=== PATIENT | male | born 1950 | race Caucasian/White ===

== ENCOUNTER 2017-06-27 22:49 | Emergency (ER) | payer MEDICARE ==
[2017-06-28 00:09] LABS: #Eosinphils 0.4 thou/uL (0.0-0.7); #Lymphocytes 1.6 thou/uL (1.20-3.40); #Monocytes 0.5 thou/uL (0.11-0.59); #Neutrophils 3.6 thou/uL (1.40-6.50); %Basophils 0.2 % (0.0-1.0); %Lymphocytes 26.5 % (21.0-51.0); %Monocytes 7.5 % (0.0-10.0); Hematocrit 42.7 % (42.0-52.0); Mean Platelet Volume 7.6 fL (7.4-10.4); Red Blood Cell (RBC) Count 4.85 mill/uL (4.70-6.10); White Blood Cell (WBC) Count 6.2 thou/uL (4.8-10.8)
[2017-06-28 00:29] LABS: ALT (SGPT) 28 U/L (8-55); AST (SGOT) 25 U/L (5-34); Alkaline Phosphatase 87 U/L (40-150); Anion Gap 12 mmol/L (10-20); BUN (Urea Nitrogen) 17 mg/dL (8.4-25.7); Bilirubin, Total 1.1 mg/dL (0.2-1.2); CK (CPK) 210 U/L (30-200); Calc. Creatinine Clearance 0 mL/min (70-130); Calcium 9.6 mg/dL (7.8-10.44); Carbon Dioxide 31 mmol/L (23-31); Chloride 101 mmol/L (98-107); Estimated GFR-MDRD 59; Globulin 3.6 g/dL (2.4-3.5); Lipase 22 U/L (8-78); Protein, Total 7.6 g/dL (5.8-8.1)
[2017-06-28 00:33] LABS: Troponin I Less than 0.010 ng/mL (< 0.028)
--- NOTE | 2017-06-28 08:12 | RAD ---
PORTABLE CHEST: HISTORY: Chest pain. COMPARISON: 02/01/17 study. FINDINGS: Heart size is enlarged. Mediastinal structures are unremarkable. Lungs are clear of infiltrates. IMPRESSION: Mild cardiomegaly. POS: [facility]
== END 2017-06-28 01:10 | disposition left against medical advice (07) ==
LOC: ERS 22:49
DX: Z53.21 Procedure and treatment not carried out due to patient leaving prior to being seen by health care provider (principal)
CPT/HCPCS: 36415; 71010; 80053; 82553; 83690; 84484; 85025; 93005

== ENCOUNTER 2018-01-26 19:06 | Inpatient (IN) | payer MEDICARE ==
[~2018-01-26 19:06] MED LIST: ISOVUE-370 76%-LOCM 1 ML ONE
[2018-01-26] MEDS ORDERED: Metoclopramide HCl 10 MG/2 ML VIAL ONE (19:39)
[2018-01-26 20:13] LABS: Hemoglobin 13.9 g/dL (14.0-18.0); Mean Corpuscular HGB CONC 32.9 g/dL (32.0-36.0); Mean Corpuscular Hemoglobin 28.4 pg (27.0-31.0); Mean Corpuscular Volume 86.4 fl (80.0-94.0); Mean Platelet Volume 7.8 fL (7.4-10.4); Platelet Count 181 thou/uL (130-400); RBC Distribution Width 14.5 % (11.5-14.5); Red Blood Cell (RBC) Count 4.88 mill/uL (4.70-6.10); White Blood Cell (WBC) Count 10.4 thou/uL (4.8-10.8)
[2018-01-26 20:31] LABS: Band 29 % (5-11); Eosinophils 1 % (0-10); Lymphocytes 3 % (21-51); MDiff Complete? YES; Metamyelocyte 3 % (0-0); Monocytes 3 % (0-10); Neutrophil 60 % (42-75); Ovalocytes SLIGHT = 2-5 cells (100X) (0-1/hpf); PLT Morphology Comment Appears Adequate; Polychromasia SLIGHT = 2-3 cells (100X) (0-2/hpf); Reactive Lymphocytes 1 % (0-10); Vacuoles SLIGHT
[2018-01-26 20:38] LABS: ALT (SGPT) 21 U/L (8-55); AST (SGOT) 20 U/L (5-34); Albumin 4.4 g/dL (3.4-4.8); Alkaline Phosphatase 63 U/L (40-150); Anion Gap 17 mmol/L (10-20); BUN (Urea Nitrogen) 25 mg/dL (8.4-25.7); Bilirubin, Total 2.2 mg/dL (0.2-1.2); CK (CPK) 172 U/L (30-200); Calc. Creatinine Clearance 0 mL/min (70-130); Calcium 9.7 mg/dL (7.8-10.44); Carbon Dioxide 23 mmol/L (23-31); Chloride 102 mmol/L (98-107); Estimated GFR-MDRD 41; Globulin 3.4 g/dL (2.4-3.5); Glucose 123 mg/dL (80-115); Lipase 23 U/L (8-78); Potassium 3.7 mmol/L (3.5-5.1); Protein, Total 7.8 g/dL (5.8-8.1); Sodium 138 mmol/L (136-145)
[2018-01-26 20:43] LABS: CKMB 0.4 ng/mL (0-6.6); Troponin I Less than 0.010 ng/mL (< 0.028)
--- NOTE | 2018-01-26 20:51 | RAD ---
PORTABLE UPRIGHT FRONTAL CHEST RADIOGRAPH: 01/26/2018 HISTORY: Vomiting. COMPARISON: None. FINDINGS: There is no pneumothorax, pleural fluid, focal consolidation, or alveolar edema. IMPRESSION: No acute findings. POS: [facility]
--- NOTE | 2018-01-26 20:58 | ULT ---
RIGHT UPPER QUADRANT ULTRASOUND: 01/26/2018 HISTORY: Abdominal pain with distention. Nausea, vomiting, and fever. COMPARISON: None. TECHNIQUE: Multiplanar mai-scale sonographic imaging of the right upper quadrant obtained. FINDINGS: The pancreas is not well seen secondary to bowel gas. The hepatic parenchyma is heterogeneous and ec hogenic, suggesting hepatocellular disease, such as steatosis. The stringer up soldering machine reports a negative Mu rphy sign. The common bile duct measures 5-6 mm, within normal limits. The right kidney measures 10 .3 cm in craniocaudal dimension, and demonstrates no stone, hydronephrosis, or mass. There appears to be a single small stone within the gallbladder neck. There is small volume sludge w ithin the gallbladder lumen. IMPRESSION: Probable single gallstone with small volume gallbladder sludge. No evidence for acute cholecystitis or biliary dilatation. POS: [facility]
--- NOTE | 2018-01-26 22:18 | CT ---
CT ABDOMEN AND PELVIS: 01/26/2018 HISTORY: Vomiting. Pain. Diarrhea. COMPARISON: None. TECHNIQUE: Serial axial CT imaging obtained at 5 mm intervals, from the lung bases through the pubic symphysis, with IV contrast. Coronal reformatted imaging obtained. FINDINGS: The lack of oral contrast limits assessment of the bowel. The imaged lung bases demonstrate no acute findings. No free intraperitoneal air or fluid is seen. The liver, gallbladder, spleen, pancreas, and adrenal glands are unremarkable. There is a small hypodensity in the upper pole of the left kidney, likely on the basis of a small cys t, measuring approximately 1.1 cm in transverse dimension. There is a punctate, nonobstructing stone in the lower pole of the right kidney. Small fat-containing inguinal hernia noted on the right. There is mild, diffuse wall thickening of the colon, especially in the region of the descending colon and the sigmoid colon. The cecum is mildly prominent, as is the ascending colon. The cecum and asc ending colon appear fluid filled. The appendix is unremarkable. There is fluid within a few scatter ed, nondilated loops of small bowel within the abdomen/pelvis. There is no evidence for large or small bowel obstruction. Multiple subcentimeter nodes are seen wit hin the retroperitoneum, with no enlarged abdominal or pelvic lymph nodes noted. Small metallic foci are noted within the mesenteric fat in the central abdomen, to the left of midlin e. Review of the osseous structures demonstrates multilevel lower lumbar spine facet hypertrophy. No wo rrisome lytic or blastic bone lesion. IMPRESSION: Fluid within the colon and scattered, nondilated loops of small bowel. Wall thickening of the descen ding colon and the sigmoid colon. Findings suggest enteritis/colitis. No evidence for bowel obstruc tion, free intraperitoneal air, or abscess. POS: [facility]
[2018-01-26] MEDS ORDERED: metroNIDAZOLE 500 MG/100 ML BAG ONE (23:10)
[2018-01-26 23:50] LABS: Bilirubin Negative (Negative); Blood, Urine Negative (Negative); Clarity CLEAR (Clear); Glucose, Urine (Dipstick) Negative (Negative); Leukocyte Negative (Negative); Nitrite Negative (Negative); Protein, Urine (Dipstick) 30 mg/dL (Neg-Trace); Specific Gravity, Urine 1.038 (1.002-1.036); Urobilinogen 0.2 mg/dL (0.2-1.0)
[2018-01-26 23:51] LABS: Bacteria/HPF None Seen HPF (None Seen); Hyaline Casts/LPF 4-6 HYALINE CAST LPF (0-3 Hyaline); Pathc Cast-AUWi Flag 0.72 (0-2.49); RBC/HPF 0-3 HPF (0-3); Squamous Epithelial 0-3 HPF (0-3); WBC/HPF 0-3 HPF (0-3)
--- NOTE | 2018-01-27 | PDOC.FPRHP ---
- History of Present Illness Chief Complaint: nausea, vomiting, diarrhea, abdominal pain History of Present Illness: PCP: Kit 67 yo M w/ PMH of htn, hld presents for evaluation of 1 day h/o nausea and vomiting x 5 and diarrhea/watery stools x3 which started earlier today. He also reports associated fever and chills. Denies hematemesis, melena, hematochezia, and BRBPR. Dneis sob, cp. Denies exacerbating and remitting factors. Only other complaint is dry mouth. Last PO intake Saturday evening. Denies change in diet, h/o possible contaminated food/water and sick contacts. ED Course: levaquin, flagyl, IVF NS 2L, phenergan - Allergies/Adverse Reactions Allergies Allergy/AdvReac Type Severity Reaction Status Date / Time meperidine HCl [From Demerol] Allergy Verified 01/27/18 02:17 - Home Medications Medication Instructions Recorded Confirmed Type Aspirin [Aspir 81] 81 mg PO DAILY 03/12/13 01/27/18 History PARoxetine HCl [Paxil] 40 mg PO DAILY 03/12/13 01/27/18 History Carvedilol [Carvedilol] 25 mg PO BID 01/27/18 01/27/18 History Esomeprazole Magnesium [Nexium 20 mg PO DAILY 01/27/18 01/27/18 History 24Hr] Hydrochlorothiazide 25 mg PO BID 01/27/18 01/27/18 History Losartan Potassium [Cozaar] 100 mg PO DAILY 01/27/18 01/27/18 History Rosuvastatin Calcium [Crestor] 40 mg PO HS 01/27/18 01/27/18 History Spironolactone 25 mg PO BID 01/27/18 01/27/18 History Terazosin HCl 2 mg PO HS 01/27/18 01/27/18 History hydrALAZINE [Apresoline] 25 mg PO PRN PRN MDD HYPERTENSION 01/27/18 01/27/18 History - History PMHx:htn, hld PSHx: None FHx: NA Social: Denies alcohol, tobacco and drug use - Review of Systems General: reports: fever/chills Eyes: denies: vision changes ENT: denies: nasal congestion, rhinorrhea Respiratory: denies: cough, congestion, shortness of breath Cardiovascular: denies: chest pain, palpitation, edema Gastrointestinal: reports: nausea, vomiting, diarrhea, abdominal pain. denies: constipation, GI bleeding Genitourinary: denies: incontinence, dysuria Skin: denies: rashes, lesions Musculoskeletal: denies: pain, arthritis/arthralgias Neurological: denies: numbness, syncope - Vital signs BP: 109/68 HR: 136 RR: 20-28 Tmax: 101.5 Pox: 95% on RA Wt: 103Kg - Physical Exam Constitutional: other (Ill appearing, obese) HEENT: normocephalic and atraumatic, PERRLA, EOMI, conjunctiva clear, no scleral icterus, grossly normal vision, grossly normal hearing Neck: supple, FROM, trachea midline, no LAD, no JVD, no thyromegaly Chest: no-tender to palpation Heart: normal S1/S2, no murmurs/rubs/gallops, pulses present, no edema, other ( tachycardic) Lungs: CTAB, no respiratory distress, good air movement, no rales/rhonchi, no wheezing, no retractions Abdomen: soft, bowel sounds present, no masses/distention, other (mildly diffuse ttp, w/o rebound or guarding) Musculoskeletal: normal structure, normal tone Neurological: no focal deficit, normal sensation Skin: no rash/lesions, capillary refill <2 seconds, other (delayed cap refill) Heme/Lymphatic: no petechia, no LAD Psychiatric: normal mood and affect FMR H&P: Results - Labs Result Diagrams: 01/27/18 04:27 01/27/18 04:27 Lab results: WBC 10.4 thou/uL (4.8-10.8) 01/26/18 19:56 Hgb 13.9 g/dL (14.0-18.0) L 01/26/18 19:56 Hct 42.2 % (42.0-52.0) 01/26/18 19:56 MCV 86.4 fl (80.0-94.0) 01/26/18 19:56 Plt Count 181 thou/uL (130-400) 01/26/18 19:56 Band Neuts % (Manual) 29 % (5-11) H 01/26/18 19:56 Sodium 138 mmol/L (136-145) 01/26/18 19:56 Potassium 3.7 mmol/L (3.5-5.1) 18 19:56 Chloride 102 mmol/L (98-107) 01/26/18 19:56 Carbon Dioxide 23 mmol/L (23-31) 18 19:56 BUN 25 mg/dL (8.4-25.7) 01/26/18 19:56 Creatinine 1.70 mg/dL (0.6-1.3) H 01/26/18 19:56 Glucose 123 mg/dL (80-115) H 01/26/18 19:56 Lactic Acid 2.7 mmol/L (0.5-2.2) H 01/26/18 19:56 Calcium 9.7 mg/dL (7.8-10.44) 01/26/18 19:56 Total Bilirubin 2.2 mg/dL (0.2-1.2) H 01/26/18 19:56 AST 20 U/L (5-34) 01/26/18 19:56 ALT 21 U/L (8-55) 01/26/18 19:56 Alkaline Phosphatase 63 U/L (40-150) 18 19:56 Creatine Kinase 172 U/L (30-200) 01/26/18 19:56 CK-MB (CK-2) 0.4 ng/mL (0-6.6) 01/26/18 19:56 Serum Total Protein 7.8 g/dL (5.8-8.1) 01/26/18 19:56 Albumin 4.4 g/dL (3.4-4.8) 01/26/18 19:56 Lipase 23 U/L (8-78) 01/26/18 19:56 Urine Ketones Negative mg/dL (Negative) 01/26/18 23:41 Urine Blood Negative (Negative) 01/26/18 23:41 Urine Nitrite Negative (Negative) 01/26/18 23:41 Ur Leukocyte Esterase Negative (Negative) 01/26/18 23:41 Urine RBC 0-3 HPF (0-3) 01/26/18 23:41 Urine WBC 0-3 HPF (0-3) 01/26/18 23:41 Ur Squamous Epith Cells 0-3 HPF (0-3) 06/17/18 23:41 Urine Bacteria None Seen HPF (None Seen) 01/26/18 23:41 - EKG Interpretation EKG: NSR, tachycardia, occasional PAC - Radiology Interpretation Chest x-ray Status: report reviewed by me (NAD) US - abdomen Status: report reviewed by me (No cholecystitis, gall stone) CT scan - abdomen Status: report reviewed by me (colitis involving sigmoid colon) FMR H&P: A/P - Problem List (1) Septic colitis Current Visit: Yes Status: Acute Code(s): A09 - INFECTIOUS GASTROENTERITIS AND COLITIS, UNSPECIFIED (2) TAMRA (acute kidney injury) Current Visit: Yes Status: Acute Code(s): N17.9 - ACUTE KIDNEY FAILURE, UNSPECIFIED (3) Dehydration Current Visit: Yes Status: Acute Code(s): E86.0 - DEHYDRATION (4) HTN (hypertension) Current Visit: Yes Status: Chronic Code(s): I10 - ESSENTIAL (PRIMARY) HYPERTENSION (5) HLD (hyperlipidemia) Current Visit: Yes Status: Chronic Code(s): E78.5 - HYPERLIPIDEMIA, UNSPECIFIED (6) MARYLOU (obstructive sleep apnea) Current Visit: Yes Status: Chronic Code(s): G47.33 - OBSTRUCTIVE SLEEP APNEA (ADULT) (PEDIATRIC) - Plan 1) Sepsis 2/2 colitis vs gastroenteritis: -admit tele - aggressive IVF resuscitation with LR @ 200 - Given flagyl and levaquin in ED, cont flagyl and switch to IV cipro - clear liquid diet ADAT - Zofran prn for n/v 2) TAMRA: 2/2 decreased pO intake and dehydration, aggressive IVF resuscitation and repeat am BMP, trend 3) Dehydration: see #2 4) HTN: home meds 5) HLD: Home meds 6) Code status: full code, spoke with pt at bedside 7) MARYLOU: CPAP qhs Disposition/LOS: guarded, >/= 2 days FMR H&P: Upper Level - Pertinent history 67 yo M with hx of obesity, MARYLOU, htn, hld reports hx of feeling weak over last week. Vomiting started around 8:00 AM today and has had multiple episodes of diarrhea today. Tried to drink some fluids at home but unable to keep anything down. Pt has nausea and a cough. Pt denies anybody around him has been sick lately but does report to ED eating TV dinner last night that may have been undercooked and a steak at [employer] on Saturday. He does not endorse this with me. Most of hx taken from his cousin who is going home to get his home CPAP machine , med list provided to nurse. - Pertinent findings 105/61 129 28 99.7 (Tmax 101.5) 95% on RA Gen: slow to answer question, weak, fatigued, no resp distress, AOx4, obese HEENT: oropharynx clear without exudates or erythema Lungs: some rales appreciated Cardiac: RRR, no murmurs, gallops, clicks, rubs, difficult to auscultate to full extent due to habitus Abd: no swelling, fluid wave, or TTP LE: no swelling - Plan Date/Time: 01/27/18 0000 I, Caryn Renteria, have evaluated this patient and agree with findings/plan as outlined by technology risk intern resident. Pertinent changes/additions are listed here. 1. sepsis 2/2 possible gastroenteritis- will need aggressive hydration, bcx2, go ahead and start abx an not sure of source but possibly gut, CT shows colitis , enteritis, flagyl and levaquin started in ED, ok with continuing those. Collect UA, CXR unremarkable though some rales appreciated, would repeat 2 V tomorrow and obtain BNP if worsening exam. LA was 2.7 repeat in 4 hours from initial draw. Repeat CBC AM 2. MARYLOU-continue with home cpap, cousin running home to get it 3. htn-hold home meds for now with sepsis and hypotension 4. hld-continue home meds 5. depression-continue home meds Attending Addendum - Attending Addendum Date/Time: 01/27/18 1225 I personally evaluated the patient and discussed the management with Dr. Renteria , Dr. Pop, and Dr. Pantoja I agree with the History, Examination, Assessment and Plan documented above with any addition or exceptions noted below. 67 yo male with hx of HTN, HLD admitted for sepsis related to infectious colitis. Has now been transferred to IM due to hypotension from hypovolemia. Will continue judicious IVF hydration. Monitor electrolytes, renal function, lactic acid, and vital closely. Continue GI antibiotics flagyl and cipro. Stool studies and cultures pending. Monitor for acute abdomen. Liquid diet and as tolerated. Lai
[2018-01-27 00:10] LABS: Lactic Acid 2.4 mmol/L (0.5-2.2)
[2018-01-27 01:45] VITALS: BMI 36.4
[2018-01-27] MEDS ORDERED: Ondansetron ODT 4 MG TAB PO PRN (02:06)
[2018-01-27] MEDS: Lactated Ringer's 1,000 ML IV SCH ×4 (03:05→17:39)
[2018-01-27] MEDS ORDERED: Acetaminophen 325 MG TAB PO PRN (03:34)
[2018-01-27 05:11] LABS: #Lymphocytes 0.5 thou/uL (1.20-3.40); #Monocytes 0.5 thou/uL (0.11-0.59); #Neutrophils 7.5 thou/uL (1.40-6.50); %Eosinophils 0.2 % (0.0-10.0); %Monocytes 5.2 % (0.0-10.0); %Neutrophils 88.6 % (42.0-75.0); Hemoglobin 13.1 g/dL (14.0-18.0); Mean Corpuscular HGB CONC 32.9 g/dL (32.0-36.0); Mean Corpuscular Hemoglobin 28.9 pg (27.0-31.0); Mean Corpuscular Volume 87.8 fl (80.0-94.0); Mean Platelet Volume 7.9 fL (7.4-10.4); Platelet Count 180 thou/uL (130-400); RBC Distribution Width 14.7 % (11.5-14.5); Red Blood Cell (RBC) Count 4.54 mill/uL (4.70-6.10); White Blood Cell (WBC) Count 8.5 thou/uL (4.8-10.8)
[2018-01-27] MEDS ORDERED: Sodium Chloride 0.9% 1,000 ML IV SCH (05:30)
--- NOTE | 2018-01-27 05:57 | PDOC.FM ---
- Objective Vital Signs & Weight: Vital Signs (12 hours) Temp Pulse Resp BP Pulse Ox 01/27/18 05:05 99.6 F 115 H 28 H 86/51 L 92 L 01/27/18 02:25 102.0 F H 124 H 22 H 114/61 96 01/27/18 02:06 96 01/27/18 01:44 102.0 F H 124 H 22 H 114/61 96 01/27/18 01:35 102.0 F H 124 H 22 H 96 Weight Weight 108.817 kg Result Diagrams: 01/27/18 04:27 01/26/18 19:56 Dx/Plan (1) Septic colitis Code(s): A09 - INFECTIOUS GASTROENTERITIS AND COLITIS, UNSPECIFIED Status: Acute (2) TAMRA (acute kidney injury) Code(s): N17.9 - ACUTE KIDNEY FAILURE, UNSPECIFIED Status: Acute (3) Dehydration Code(s): E86.0 - DEHYDRATION Status: Acute (4) HLD (hyperlipidemia) Code(s): E78.5 - HYPERLIPIDEMIA, UNSPECIFIED Status: Chronic (5) HTN (hypertension) Code(s): I10 - ESSENTIAL (PRIMARY) HYPERTENSION Status: Chronic (6) MARYLOU (obstructive sleep apnea) Code(s): G47.33 - OBSTRUCTIVE SLEEP APNEA (ADULT) (PEDIATRIC) Status: Chronic - Plan Plan: 1) Sepsis 2/2 colitis vs gastroenteritis: - aggressive IVF resuscitation with LR @ 200 - Given flagyl and levaquin in ED, cont flagyl and switch to IV cipro - clear liquid diet ADAT - Zofran prn for n/v 2) TAMRA: - 2/2 decreased PO intake and dehydration - aggressive IVF resuscitation - repeat AM BMP pending 3) Dehydration: - see #2 4) HTN: - home meds 5) HLD: - Home meds 7) MARYLOU: - CPAP qhs
[2018-01-27 05:58] LABS: Anion Gap 16 mmol/L (10-20); BUN (Urea Nitrogen) 26 mg/dL (8.4-25.7); Calc. Creatinine Clearance 65 mL/min (70-130); Calcium 8.4 mg/dL (7.8-10.44); Carbon Dioxide 17 mmol/L (23-31); Chloride 106 mmol/L (98-107); Estimated GFR-MDRD 40; Glucose 100 mg/dL (80-115); Potassium 3.2 mmol/L (3.5-5.1); Sodium 136 mmol/L (136-145)
[2018-01-27] MEDS ORDERED: Vancomycin HCl 1.75 GM in Sodium Chloride 0.9% 500 ML IVPB SCH (07:15)
[2018-01-27 07:45] LABS: Lactic Acid 2.9 mmol/L (0.5-2.2)
[2018-01-27] MEDS ORDERED: Potassium Chloride 40 MEQ in Sodium Chloride 0.9% 250 ML 250 ML IVPB SCH (08:00)
[2018-01-27] MEDS: metroNIDAZOLE 500 MG in Premix Bag 1 BAG IVPB SCH ×2 (08:46→17:41)
[2018-01-27] MEDS: PARoxetine 20 MG TAB PO SCH (08:50)
[2018-01-27] MEDS: Aspirin 81 mg Enteric Coated Tablet PO SCH (08:50)
[2018-01-27] MEDS: Famotidine/PF 20 mg/2ml Vial SLOW IVP SCH ×2 (08:51→08:52)
[2018-01-27] MEDS ORDERED: Non-Formulary Item 1 EACH (Esomeprazole Magnesium [Nexium 24hr] 20 MG) PO SCH (09:00)
--- NOTE | 2018-01-27 10:47 | CON ---
DATE OF CONSULTATION: 01/27/2018 SERVICE: Pulmonary Medicine REASON FOR CONSULTATION: ICU patient. HISTORY OF PRESENT ILLNESS: The patient is a 67-year-old white male. He was in his usual state of health. Yesterday for lunch, he had [employer]. In the evening time, he made a TV dinner tray. He woke up Saturday in his usual state of health. He went to baptism. When he got home from her baptism before he ate anything, he had sudden onset of severe diarrhea. He had greater than 10 episodes over those 24 hours. He got a little lightheaded and felt weak. He presented to the emergency department. He was given a little bit of fluid. He started feeling a little better and was tucked on the floor. He continued to have significant diarrhea events. Blood pressures were marginal and so he was transitioned to the ICU for closer monitoring of his ins and outs. He had over 7 liters of fluid in a very short period of time. His baseline weight is 230 pounds. We got a standing weight on him just a couple minutes ago and he was 227 pounds. He denies any current fevers or chills. He did not have any night sweats and outside of the diarrhea , he feels actually okay. He gets a little bit of lightheadedness whenever he gets up, but it is not severe at this time. PAST MEDICAL HISTORY: 1. Hypertension. 2. Dyslipidemia. 3. Obstructive sleep apnea. PAST SURGICAL HISTORY: None. SOCIAL HISTORY: Negative for alcohol, tobacco or illicit drug use. He has no exposure to chemicals, dust, asbestos or tuberculosis. FAMILY HISTORY: Noncontributory. ALLERGIES: MEPERIDINE. MEDICATIONS: A list of his inpatient medications were reviewed. No specific updates were made at this time. REVIEW OF SYSTEMS: General, head, ears, eyes, nose, throat, cardiovascular, respiratory, GI, , musculoskeletal, neurologic and skin is negative except as mentioned in the HPI. PHYSICAL EXAMINATION: VITAL SIGNS: Afebrile currently. His T-max overnight was 102.0, pulse 52, blood pressure 92/66, respirations 23, saturation 99% on room air. GENERAL: The patient is awake and alert, in no apparent distress. LUNGS: Excellent air entry with no prolonged expiratory phase, wheezing, rhonchi or crackles. HEART: Normal rate, regular. ABDOMEN: Soft. Nondistended. Bowel sounds are present. MUSCULOSKELETAL: No cyanosis or clubbing. There is no pitting in the bilateral lower extremities. NEUROLOGIC: Grossly nonfocal. LABORATORY DATA: WBC 8.5, hemoglobin 13.1, platelets 180,000. Creatinine 1.72 , which is above his baseline. BUN 26. Basic metabolic profile is otherwise unremarkable. Potassium 3.2. BNP 269. Liver function studies, troponin are unremarkable. Lactate is down trending to 2.9. Total bilirubin 2.2. Urine protein 30. Urinalysis is otherwise unremarkable. Blood cultures x2 are negative. Stool for occult blood is positive. IMAGIN. CT Abdomen and pelvis demonstrates wall thickening of the descending and sigmoid colons. 2. CXR with without acute cardiopulmonary abnormality. 3. Ultrasound of the abdomen is without acute issues. ASSESSMENT: 1. Acute diarrhea with colitis on CT abdomen. 2. Severe dehydration. 3. Hypokalemia. PLAN: The patient is having massive volume shifts. We gave him over 7 liters of fluid at this time. Despite that, his weight is 3 pounds below his baseline. I will replace his potassium. We will watch his ins and outs very closely, get frequent daily weights on him, and watch electrolytes very closely. I will aggressively replace them. Pulmonary Critical Care will continue to follow along while he remains in this location. Multiple laboratories are currently pending. We are going to send off for stool toxins including the Shiga, and salmonella toxins. 70 minutes have been devoted to this patient in various activities. I personally reviewed all imaging studies and laboratory data noted within this document. For fifty percent of this time, I was interacting with the patient at the bedside or coordinating care with the care team. For the remainder of the time I was immediately available to the patient in the hospital unit. N[place]OLEON
[2018-01-27] MEDS: Potassium Chloride 20 MEQ TAB PO SCH ×2 (11:46→17:42)
[2018-01-27] MEDS ORDERED: Piperacillin/Tazobactam 4.5 GM in Sodium Chloride 0.9% 100 ML IVPB SCH (12:00)
[2018-01-27] MEDS: Ondansetron HCl/PF 4 MG/2 ML Vial IVP PRN ×2 (14:25→20:53)
[2018-01-27] MEDS ORDERED: Vancomycin HCl 1.5 GM in Sodium Chloride 0.9% 250 ML 300 ML IVPB SCH (19:30)
[2018-01-27] MEDS: Rosuvastatin 20 MG TAB PO SCH (20:14)
[2018-01-27 21:41] LABS: Anion Gap 13 mmol/L (10-20); BUN (Urea Nitrogen) 28 mg/dL (8.4-25.7); Calc. Creatinine Clearance 75 mL/min (70-130); Calcium 7.9 mg/dL (7.8-10.44); Carbon Dioxide 19 mmol/L (23-31); Chloride 107 mmol/L (98-107); Estimated GFR-MDRD 47; Glucose 97 mg/dL (80-115); Potassium 3.7 mmol/L (3.5-5.1); Sodium 135 mmol/L (136-145)
[2018-01-27 21:48] LABS: Magnesium 0.9 mg/dL (1.6-2.6); Phosphorus 1.8 mg/dL (2.3-4.7)
[2018-01-27] MEDS ORDERED: Magnesium Oxide 400 MG TAB PO PRN ×2 (22:33)
[2018-01-27] MEDS ORDERED: CCU ELECTROLYTE REPLACEMENT PROTOCOL FS PRN (22:33)
[2018-01-27] MEDS ORDERED: Potassium Phosphate 12 MMOL in Sodium Chloride 0.9% 250 ML 250 ML IV PRN (22:33)
[2018-01-27] MEDS ORDERED: Potassium Phosphate 15 MMOL in Sodium Chloride 0.9% 250 ML 250 ML IV PRN (22:33)
[2018-01-27] MEDS ORDERED: Potassium Chloride 40 MEQ in Premix Bag 1 BAG IVPB PRN (22:33)
[2018-01-27] MEDS ORDERED: Potassium Phosphate 9 MMOL in Sodium Chloride 0.9% 100 ML IVPB PRN (22:33)
[2018-01-27] MEDS ORDERED: Potassium Chloride 20 MEQ TAB PO PRN (22:33)
[2018-01-27] MEDS ORDERED: Potassium Chloride 40 MEQ in Sodium Chloride 0.9% 250 ML 250 ML IVPB PRN (22:33)
[2018-01-27] MEDS: Magnesium 2 GM/NS 0.9% 100 ML 2 GM in Premix Bag 1 BAG IVPB PRN (22:57)
[2018-01-28] MEDS: Lactated Ringer's 1,000 ML IV SCH ×5 (01:08→23:29)
[2018-01-28] MEDS: metroNIDAZOLE 500 MG in Premix Bag 1 BAG IVPB SCH ×3 (01:08→15:26)
[2018-01-28] MEDS: Ondansetron HCl/PF 4 MG/2 ML Vial IVP PRN (02:22)
[2018-01-28 05:36] LABS: Band 65 % (5-11); Hemoglobin 11.6 g/dL (14.0-18.0); Lymphocytes 14 % (21-51); MDiff Complete? YES; Mean Corpuscular Hemoglobin 29.1 pg (27.0-31.0); Mean Corpuscular Volume 88.4 fl (80.0-94.0); Monocytes 1 % (0-10); Neutrophil 20 % (42-75); PLT Morphology Comment Appears Adequate; Platelet Count 152 thou/uL (130-400); RBC Distribution Width 14.5 % (11.5-14.5); RBC Morphology Normal; Red Blood Cell (RBC) Count 3.99 mill/uL (4.70-6.10); White Blood Cell (WBC) Count 7.1 thou/uL (4.8-10.8)
--- NOTE | 2018-01-28 07:37 | PDOC.FM ---
- Subjective Subjective: 67 yo M here for sepsis and severe dehydration secondary to colitis. Pt did well over night with no acute events. Feeling somewhat better today, but still complains of 1 watery stool per hour and abdominal pain. Pt was able to tolerate very little PO yesterday dt nausea. - Objective MAR Reviewed: Yes Vital Signs & Weight: Vital Signs (12 hours) Temp Pulse Resp BP Pulse Ox 01/28/18 04:37 97.9 F 109 H 16 92/60 100 01/28/18 03:09 100 01/28/18 00:07 99.1 F 110 H 16 113/67 100 01/27/18 20:00 99.7 F H 110 H 18 100 Weight Weight 102.739 kg Most Recent Monitor Data Heart Rate from ECG 105 NIBP 112/62 NIBP BP-Mean 77 Respiration from ECG 18 SpO2 100 I&O: 01/27/18 01/28/18 01/29/18 06:59 06:59 06:59 Intake Total 960 2620 Output Total 2300 Balance 960 320 Result Diagrams: 01/28/18 03:55 01/27/18 21:14 <Garland Pantoja - Last Filed: 01/28/18 07:59> - Objective Vital Signs & Weight: Vital Signs (12 hours) Temp Pulse Resp BP Pulse Ox 01/28/18 10:56 98.5 F 91 17 132/78 100 01/28/18 08:16 98.4 F 91 19 100 01/28/18 07:38 98.4 F 91 19 114/74 100 01/28/18 04:37 97.9 F 109 H 16 92/60 100 01/28/18 03:09 100 Weight Weight 102.739 kg Most Recent Monitor Data Heart Rate from ECG 105 NIBP 112/62 NIBP BP-Mean 77 Respiration from ECG 18 SpO2 100 I&O: 01/27/18 01/28/18 01/29/18 06:59 06:59 06:59 Intake Total 960 2620 Output Total 2300 Balance 960 320 Result Diagrams: 01/28/18 03:55 01/28/18 09:09 <Mabel Davis - Last Filed: 01/28/18 12:48> Phys Exam - Physical Examination Constitutional: NAD HEENT: moist MMs, sclera anicteric Neck: no JVD, full ROM Respiratory: clear to auscultation bilateral Cardiovascular: RRR Gastrointestinal: soft, non-tender, no distention, positive bowel sounds Musculoskeletal: no edema Neurological: non-focal, moves all 4 limbs Psychiatric: normal affect, A&O x 3 Skin: no rash, normal turgor <Garland Pantoja - Last Filed: 01/28/18 07:59> Dx/Plan (1) TAMRA (acute kidney injury) Code(s): N17.9 - ACUTE KIDNEY FAILURE, UNSPECIFIED Status: Acute (2) Dehydration Code(s): E86.0 - DEHYDRATION Status: Acute (3) Septic colitis Code(s): A09 - INFECTIOUS GASTROENTERITIS AND COLITIS, UNSPECIFIED Status: Acute (4) HLD (hyperlipidemia) Code(s): E78.5 - HYPERLIPIDEMIA, UNSPECIFIED Status: Chronic (5) HTN (hypertension) Code(s): I10 - ESSENTIAL (PRIMARY) HYPERTENSION Status: Chronic (6) MARYLOU (obstructive sleep apnea) Code(s): G47.33 - OBSTRUCTIVE SLEEP APNEA (ADULT) (PEDIATRIC) Status: Chronic (7) Hypomagnesemia Code(s): E83.42 - HYPOMAGNESEMIA Status: Acute (8) Hypophosphatemia Code(s): E83.39 - OTHER DISORDERS OF PHOSPHORUS METABOLISM Status: Acute - Plan Plan: Severe dehydration secondary to gastric losses - pt had at least 8 L IVF yesterday, he is currently 1lb less today than yesterday - BP has been stable for almost 24 hours, though tachycardia remains - Consider moving to the floor this afternoon if BP continues to be stable - Unable to take PO, will continue IVF @ 200 - Monitor BMP BID and give electrolytes as indicated - Stool studies thus far have been negative, cultures are pending - Continue empiric abx, will adjust if indicated by cultures Sepsis 2/2 Colitis - as above. TAMRA - improving, continue IVF and monitor BMP Hypomagnesemia - replaced IV, will recheck BID while diarrhea persists Hypophospatemia - replaced, recheck BID while diarrhea persists and pt is unable to tolerate PO HTN - home meds HLD - Home meds MARYLOU - CPAP qhs Dispo: Stable, hopefully transition to floor today. LOS >2 days <Garland Pantoja - Last Filed: 01/28/18 07:59> (1) Septic colitis Code(s): A09 - INFECTIOUS GASTROENTERITIS AND COLITIS, UNSPECIFIED Status: Acute (2) TAMRA (acute kidney injury) Code(s): N17.9 - ACUTE KIDNEY FAILURE, UNSPECIFIED Status: Acute (3) Dehydration Code(s): E86.0 - DEHYDRATION Status: Acute (4) HTN (hypertension) Code(s): I10 - ESSENTIAL (PRIMARY) HYPERTENSION Status: Chronic (5) HLD (hyperlipidemia) Code(s): E78.5 - HYPERLIPIDEMIA, UNSPECIFIED Status: Chronic (6) AMRYLOU (obstructive sleep apnea) Code(s): G47.33 - OBSTRUCTIVE SLEEP APNEA (ADULT) (PEDIATRIC) Status: Chronic <Mabel Davis - Last Filed: 01/28/18 12:48> Attending Addendum - Attending Addendum Date/Time: 01/28/18 1246 I personally evaluated the patient and discussed the management with Dr. Cabrera and Dr. Pantoja I agree with the History, Examination, Assessment and Plan documented above with any addition or exceptions noted below. 67 yo male with hx of HTN, HLD admitted for sepsis related to infectious colitis. Severe dehydration improving. BP and HR improving. Diarrhea improving. Continue to closely monitor and replace electrolytes. Will likely transition to medical floor later today if continues to improve. ABrayMD <Mabel Davis - Last Filed: 01/28/18 12:48>
[2018-01-28] MEDS ORDERED: Metoclopramide HCl 10 MG/2 ML VIAL IVP PRN (08:45)
[2018-01-28] MEDS: PARoxetine 20 MG TAB PO SCH (08:56)
[2018-01-28] MEDS: Aspirin 81 mg Enteric Coated Tablet PO SCH (08:56)
--- NOTE | 2018-01-28 08:58 | PRG ---
DATE OF SERVICE: 01/28/2018 This is a 67-year-old gentleman who I see in the office for sleep apnea, presented over the weekend w ith nausea, vomiting and then diarrhea. He was hypertensive. History is well outlined. He was found to have colitis. He is on Cipro and Flagyl. All cultures so far are negative. He is still feeling nauseated. PHYSICAL EXAMINATION: VITAL SIGNS: Sats 100% on 2 liters, temperature 98, pulse 98. CHEST: Chest reveals decreased breath sounds, no wheezing. CARDIAC: Normal S1, S2. ABDOMEN: Soft, no masses. LABORATORY: Bands 65, 20 neutrophils. White count 7000, H&H is 11 and 35, platelet count 52, creati nine 1.49, magnesium 0.9. IMPRESSION: 1. Diffuse thickening of the colon in the region of the descending colon and sigmoid colon consisten t with colitis. 2. Sleep apnea. 3. Renal failure. 4. Obesity. PLAN: Continue Flagyl and Cipro until we get cultures back. He is still nauseated. Continue slow hydration. We will follow while in the IMCU. The patient was told to use his CPAP from home.
[2018-01-28 09:48] LABS: Anion Gap 10 mmol/L (10-20); BUN (Urea Nitrogen) 22 mg/dL (8.4-25.7); Calc. Creatinine Clearance 80 mL/min (70-130); Calcium 8.2 mg/dL (7.8-10.44); Carbon Dioxide 23 mmol/L (23-31); Chloride 108 mmol/L (98-107); Estimated GFR-MDRD 54; Glucose 114 mg/dL (80-115); Magnesium 1.6 mg/dL (1.6-2.6); Sodium 137 mmol/L (136-145)
[2018-01-28 09:53] LABS: Phosphorus 1.6 mg/dL (2.3-4.7)
[2018-01-28] MEDS: Magnesium 2 GM/NS 0.9% 100 ML 2 GM in Premix Bag 1 BAG IVPB PRN (11:19)
[2018-01-28] MEDS: Rosuvastatin 20 MG TAB PO SCH (21:25)
[2018-01-28 21:41] LABS: Anion Gap 11 mmol/L (10-20); BUN (Urea Nitrogen) 17 mg/dL (8.4-25.7); Calc. Creatinine Clearance 97 mL/min (70-130); Calcium 8.4 mg/dL (7.8-10.44); Carbon Dioxide 22 mmol/L (23-31); Chloride 109 mmol/L (98-107); Estimated GFR-MDRD 68; Glucose 107 mg/dL (80-115); Magnesium 2.1 mg/dL (1.6-2.6); Phosphorus 1.2 mg/dL (2.3-4.7); Sodium 138 mmol/L (136-145)
[2018-01-28] MEDS ORDERED: Doxylamine 25 MG TAB PO SCH (22:15)
[2018-01-29] MEDS: Lactated Ringer's 1,000 ML IV SCH ×2 (00:09→05:36)
[2018-01-29] MEDS: metroNIDAZOLE 500 MG in Premix Bag 1 BAG IVPB SCH ×2 (00:15→08:49)
[2018-01-29 04:30] LABS: #Eosinphils 0.1 thou/uL (0.0-0.7); #Lymphocytes 0.7 thou/uL (1.20-3.40); #Monocytes 0.2 thou/uL (0.11-0.59); #Neutrophils 5.2 thou/uL (1.40-6.50); %Basophils 0.3 % (0.0-1.0); %Eosinophils 1.2 % (0.0-10.0); %Lymphocytes 11.4 % (21.0-51.0); %Monocytes 3.9 % (0.0-10.0); %Neutrophils 83.3 % (42.0-75.0); Hemoglobin 11.1 g/dL (14.0-18.0); Mean Corpuscular HGB CONC 33.1 g/dL (32.0-36.0); Mean Corpuscular Hemoglobin 28.8 pg (27.0-31.0); Mean Corpuscular Volume 87.1 fL (78.0-98.0); Mean Platelet Volume 7.5 fL (7.4-10.4); Platelet Count 159 thou/uL (130-400); RBC Distribution Width 14.4 % (11.5-14.5); Red Blood Cell (RBC) Count 3.86 mill/uL (4.70-6.10); White Blood Cell (WBC) Count 6.2 thou/uL (4.8-10.8)
[2018-01-29 07:00] LABS: Anion Gap 11 mmol/L (10-20); BUN (Urea Nitrogen) 15 mg/dL (8.4-25.7); Calc. Creatinine Clearance 102 mL/min (70-130); Calcium 8.5 mg/dL (7.8-10.44); Carbon Dioxide 26 mmol/L (23-31); Chloride 107 mmol/L (98-107); Estimated GFR-MDRD 66; Glucose 99 mg/dL (80-115); Magnesium 1.9 mg/dL (1.6-2.6); Phosphorus 1.7 mg/dL (2.3-4.7); Potassium 3.7 mmol/L (3.5-5.1); Sodium 140 mmol/L (136-145)
[2018-01-29] MEDS: Aspirin 81 mg Enteric Coated Tablet PO SCH (08:51)
[2018-01-29] MEDS: PARoxetine 20 MG TAB PO SCH (08:51)
--- NOTE | 2018-01-29 08:52 | PRG ---
DATE OF SERVICE: 01/29/2018 This morning he is awake, alert, responsive. He is still having some vague amount of pain, but no fu rther nausea, vomiting or diarrhea. PHYSICAL EXAMINATION: VITAL SIGNS: Temperature 98, sats are 94% on room air, respiration is 18, pulse 88, blood pressure 1 20/78. CHEST: Chest reveals no wheezing or crackles. CARDIAC: Normal S1, S2, no gallops. ABDOMEN: Soft. His electrolytes are normal. His phosphorus was in the lower end, 1.7. White count 6000, H&H 9 and 33. Creatinine is back to his baseline. IMPRESSION: 1. Gastroenteritis. 2. Colitis, etiology unclear. All cultures negative. 3. Sleep apnea. The patient appears to be at his baseline. Denies vague abdominal pain. Suggest switching him over to oral antibiotics. Probably Flagyl. Hopefully, he can be discharged home in the next several days .
--- NOTE | 2018-01-29 09:25 | PDOC.FM ---
- Subjective Subjective: 67 yo M here for severe dehyrdation secondary to infectious diarrhea. Moved from IMCU to floor yesterday. No acute events over night. Pt feels well today. Now tolerating PO intake. - Objective MAR Reviewed: Yes Vital Signs & Weight: Vital Signs (12 hours) Temp Pulse Resp BP Pulse Ox 01/29/18 08:39 98.1 F 80 20 145/87 H 95 01/29/18 05:13 98.5 F 88 18 121/78 94 L Weight Weight 110.847 kg Most Recent Monitor Data Heart Rate from ECG 105 NIBP 112/62 NIBP BP-Mean 77 Respiration from ECG 18 SpO2 100 I&O: 01/28/18 01/29/18 01/30/18 06:59 06:59 06:59 Intake Total 2620 2469 Output Total 2300 Balance 320 2469 Result Diagrams: 01/29/18 04:01 01/29/18 03:59 <Garland Pantoja - Last Filed: 01/29/18 09:20> - Objective Vital Signs & Weight: Vital Signs (12 hours) Temp Pulse Resp BP Pulse Ox 01/30/18 07:35 98.3 F 65 16 143/81 H 97 Weight Weight 110.847 kg Most Recent Monitor Data Heart Rate from ECG 105 NIBP 112/62 NIBP BP-Mean 77 Respiration from ECG 18 SpO2 100 I&O: 01/29/18 01/30/18 01/31/18 06:59 06:59 06:59 Intake Total 2469 1810 Balance 2469 1810 Result Diagrams: 01/29/18 04:01 01/29/18 03:59 <Mabel Davis - Last Filed: 01/30/18 08:41> Phys Exam - Physical Examination Constitutional: NAD HEENT: moist MMs Neck: no JVD, full ROM Respiratory: clear to auscultation bilateral Cardiovascular: RRR, no significant murmur, no rub Gastrointestinal: soft, no distention, positive bowel sounds Mild defuse TTP Musculoskeletal: no edema Neurological: non-focal, normal sensation, moves all 4 limbs Psychiatric: normal affect, A&O x 3 Skin: no rash, normal turgor <Garland Pantoja - Last Filed: 01/29/18 09:20> Dx/Plan (1) TAMRA (acute kidney injury) Code(s): N17.9 - ACUTE KIDNEY FAILURE, UNSPECIFIED Status: Resolved (2) Dehydration Code(s): E86.0 - DEHYDRATION Status: Acute (3) Septic colitis Code(s): A09 - INFECTIOUS GASTROENTERITIS AND COLITIS, UNSPECIFIED Status: Acute (4) HLD (hyperlipidemia) Code(s): E78.5 - HYPERLIPIDEMIA, UNSPECIFIED Status: Chronic (5) HTN (hypertension) Code(s): I10 - ESSENTIAL (PRIMARY) HYPERTENSION Status: Chronic (6) MARYLOU (obstructive sleep apnea) Code(s): G47.33 - OBSTRUCTIVE SLEEP APNEA (ADULT) (PEDIATRIC) Status: Chronic (7) Hypomagnesemia Code(s): E83.42 - HYPOMAGNESEMIA Status: Acute (8) Hypophosphatemia Code(s): E83.39 - OTHER DISORDERS OF PHOSPHORUS METABOLISM Status: Acute - Plan Plan: Severe dehydration secondary to gastric losses - BP and HR have stabilized, with now multiple readings in the hypertensive range. Consider restarting PM HTN meds pending repeat readings. - Consider moving to the floor this afternoon if BP continues to be stable - Tolerating PO, decrease IVF to maintenance and consider DC this afternoon - BMs continue to be watery, however have decreased to every 5-6 hours - BMP in am - Stool studies negative - Continue empiric abx Sepsis 2/2 Colitis - as above. TAMRA - improving, continue IVF and monitor BMP Hypomagnesemia - replaced IV, continue to monitor with am labs Hypophospatemia - replaced, continue to monitor with am labs HTN - home meds this PM assuming continued stable BP HLD - Home meds MARYLOU - CPAP qhs Dispo: Stable, continue to monitor. Possible dc in am <Garland Pantoja - Last Filed: 01/29/18 09:20> (1) Septic colitis Code(s): A09 - INFECTIOUS GASTROENTERITIS AND COLITIS, UNSPECIFIED Status: Acute (2) TAMRA (acute kidney injury) Code(s): N17.9 - ACUTE KIDNEY FAILURE, UNSPECIFIED Status: Resolved (3) Dehydration Code(s): E86.0 - DEHYDRATION Status: Acute (4) HTN (hypertension) Code(s): I10 - ESSENTIAL (PRIMARY) HYPERTENSION Status: Chronic (5) HLD (hyperlipidemia) Code(s): E78.5 - HYPERLIPIDEMIA, UNSPECIFIED Status: Chronic (6) MARYLOU (obstructive sleep apnea) Code(s): G47.33 - OBSTRUCTIVE SLEEP APNEA (ADULT) (PEDIATRIC) Status: Chronic <Mabel Davis - Last Filed: 01/30/18 08:41> Attending Addendum - Attending Addendum Date/Time: 01/29/18 1340 I personally evaluated the patient and discussed the management with Dr. Cabrera and Dr. Pantoja I agree with the History, Examination, Assessment and Plan documented above with any addition or exceptions noted below. 67 yo male with hx of HTN, HLD admitted for sepsis related to infectious colitis. Continues to improve. Will hold IVFs today. Advanced diet. If able to tolerate switch to PO and likely home tomorrow. ABrayMD <Mabel Davis - Last Filed: 01/30/18 08:41>
[2018-01-29] MEDS ORDERED: Lactated Ringer's 1,000 ML IV SCH (09:31)
--- NOTE | 2018-01-29 12:57 | PQF ---
CLINICAL DOCUMENTATION IMPROVEMENT CLARIFICATION FORM: ICD-10 Updated PLEASE DO AN ADDENDUM TO THE PROGRESS NOTE WITH ANY DOCUMENTATION UPDATES OR ADDITIONS AND CARRY THROUGH TO DC SUMMARY. THANK YOU. DATE: 01/29/18 ATTN: Dr. Pantoja/ Attending Dr. Davis Please exercise your independent, professional judgment in responding to the clarification form. Clinical indicators are provided on the bottom of this form for your review Please check appropriate box(s): [ x ] Hypovolemic Shock, non hemorrhagic [ ] Septic Shock [ ] Shock Unspecified [ ] Other diagnosis [ ] Unable to determine In addition, please specify: Present on Admission (POA): [ ] Yes [ ] No [ x ] Unable to determine For continuity of documentation, please document condition throughout progress notes and discharge summary. Thank You. CLINICAL INDICATORS - SIGNS / SYMPTOMS / LABS H&P 01/27: SEPSIS 2/2 COLITIS VS GASTROENTERITIS TAMRA 2/2 DECREASED PO INTAKE & DEHYDRATION NURSING NOTE 01/27 @ 0736: PT BP RECHECKED AFTER 1L NS BOLUS. PRESSURE DROPPED TO 60S/40S. CODE GREEN ACTIVATED D/T HYPOTENSION, TACHYCARDIA. 01/26 01/27 LAB: LACTIC ACID 2.7 3.5 RISKS: H&P 01/27: 1 DAY H/O NAUSEA & VOMITING X5 & DIARRHEA/WATERY STOOLS X3 WHICH STARTED EARLIER TODAY. ATTENDING: ADMITTED FOR SEPSIS R/T INFECTIOUS COLITIS. TREATMENT: H&P 01/27: TRANSFERRED TO [facility] D/T HYPOTENSION FROM HYPOVOLEMIA. PULMONOLOGY CONSULT: WE GAVE HIM OVER 7 LITERS OF FLUID (This form is maintained as a part of the permanent medical record) 2014 [employer]. All Rights Reserved Li Denson RN, BSN [email or web address] Office: [phone] [facility]
[2018-01-29] MEDS ORDERED: hydrALAZINE 25 MG TAB PO PRN (15:36)
[2018-01-29] MEDS ORDERED: metroNIDAZOLE 500 MG TAB PO SCH ×2 (16:00→21:00)
[2018-01-29] MEDS ORDERED: Ciprofloxacin 500 MG TAB PO SCH (20:00)
[2018-01-29] MEDS: Carvedilol 25 MG TAB PO SCH (20:16)
[2018-01-29] MEDS: Rosuvastatin 20 MG TAB PO SCH (20:16)
[2018-01-29] MEDS ORDERED: Terazosin HCl 1 MG CAP PO SCH (21:00)
[2018-01-29] MEDS ORDERED: Spironolactone 25 MG TAB PO SCH (21:00)
[2018-01-29] MEDS ORDERED: Hydrochlorothiazide 25 MG TAB PO SCH (21:00)
[2018-01-30] MEDS ORDERED: Spironolactone 25 MG TAB PO SCH (08:00)
[2018-01-30] MEDS: Carvedilol 25 MG TAB PO SCH (08:26)
[2018-01-30] MEDS: Aspirin 81 mg Enteric Coated Tablet PO SCH (08:26)
[2018-01-30] MEDS: PARoxetine 20 MG TAB PO SCH (08:26)
--- NOTE | 2018-01-30 08:54 | PRG ---
DATE OF SERVICE: 01/30/2018 This morning he is better. Surprisingly, his stool culture grew Shigella which is resistant to the c ommon antibiotics, but sensitive to the ampicillin. He is better. He is going to be discharged home . PHYSICAL EXAMINATION: VITAL SIGNS: Sats are 96%, temperature 98, blood pressure 143/81. CHEST: Chest revealed no wheezing. CARDIAC: Normal S1, S2, no gallops. IMPRESSION: 1. Infectious diarrhea, Shigella, sensitive to ampicillin. 2. Obstructive sleep apnea. Disposition per primary care physician. He can be seen in the office as needed.
[2018-01-30] MEDS ORDERED: Losartan 25 MG TAB PO SCH (09:00)
[2018-01-30] MEDS ORDERED: Saccharomyces boulardii 250 MG CAP PO SCH (09:00)
--- NOTE | 2018-01-30 09:28 | PDOC.FM ---
- Subjective Subjective: 67 yo M here for dehydration 2/2 Shigella colitis. Feeling much better this am. Tolerating PO. No new complaints. No acute events over night. - Objective MAR Reviewed: Yes Vital Signs & Weight: Vital Signs (12 hours) Temp Pulse Resp BP Pulse Ox 01/30/18 07:35 98.3 F 65 16 143/81 H 97 Weight Weight 110.847 kg Most Recent Monitor Data Heart Rate from ECG 105 NIBP 112/62 NIBP BP-Mean 77 Respiration from ECG 18 SpO2 100 I&O: 01/29/18 01/30/18 01/31/18 06:59 06:59 06:59 Intake Total 2469 1810 Balance 2469 1810 Result Diagrams: 01/29/18 04:01 01/29/18 03:59 <Garland Pantoja - Last Filed: 01/30/18 09:24> - Objective Vital Signs & Weight: Vital Signs (12 hours) Temp Pulse Resp BP Pulse Ox 01/30/18 12:00 98.1 F 67 16 151/87 H 96 01/30/18 08:00 98.3 F 65 16 97 01/30/18 07:35 98.3 F 65 16 143/81 H 97 Weight Weight 108.409 kg Most Recent Monitor Data Heart Rate from ECG 105 NIBP 112/62 NIBP BP-Mean 77 Respiration from ECG 18 SpO2 100 I&O: 01/29/18 01/30/18 01/31/18 06:59 06:59 06:59 Intake Total 2469 1810 Balance 2469 1810 Result Diagrams: 01/29/18 04:01 01/29/18 03:59 <Mabel Davis - Last Filed: 01/30/18 16:44> Phys Exam - Physical Examination Constitutional: NAD HEENT: moist MMs, sclera anicteric Neck: no JVD, full ROM Respiratory: clear to auscultation bilateral Cardiovascular: RRR, no significant murmur, no rub Gastrointestinal: soft, non-tender, no distention, positive bowel sounds Musculoskeletal: no edema Neurological: non-focal, moves all 4 limbs Psychiatric: normal affect, A&O x 3 Skin: no rash, normal turgor <Garland Pantoja - Last Filed: 01/30/18 09:24> Dx/Plan (1) TAMRA (acute kidney injury) Code(s): N17.9 - ACUTE KIDNEY FAILURE, UNSPECIFIED Status: Resolved (2) Dehydration Code(s): E86.0 - DEHYDRATION Status: Acute (3) Septic colitis Code(s): A09 - INFECTIOUS GASTROENTERITIS AND COLITIS, UNSPECIFIED Status: Acute (4) HLD (hyperlipidemia) Code(s): E78.5 - HYPERLIPIDEMIA, UNSPECIFIED Status: Chronic (5) HTN (hypertension) Code(s): I10 - ESSENTIAL (PRIMARY) HYPERTENSION Status: Chronic (6) MARYLOU (obstructive sleep apnea) Code(s): G47.33 - OBSTRUCTIVE SLEEP APNEA (ADULT) (PEDIATRIC) Status: Chronic (7) Hypomagnesemia Code(s): E83.42 - HYPOMAGNESEMIA Status: Acute (8) Hypophosphatemia Code(s): E83.39 - OTHER DISORDERS OF PHOSPHORUS METABOLISM Status: Acute - Plan Plan: Severe dehydration secondary to gastric losses - Cultures resulted as Shigella sensitive to amp only. Started on abx last night - BP and HR stable - Tolerating PO - BMs continue to be watery,, but decreased in volume and frequency - home today on 10 day total course of abx Sepsis 2/2 Colitis - resolved TAMRA - improving, encourage PO fluids Hypomagnesemia - resolved Hypophospatemia - resolved HTN - home meds HLD - Home meds MARYLOU - CPAP qhs Dispo: Stable, follow up in 1 week outpt. Dc home today <Garland Pantoja - Last Filed: 01/30/18 09:24> (1) Septic colitis Code(s): A09 - INFECTIOUS GASTROENTERITIS AND COLITIS, UNSPECIFIED Status: Acute (2) TAMRA (acute kidney injury) Code(s): N17.9 - ACUTE KIDNEY FAILURE, UNSPECIFIED Status: Resolved (3) Dehydration Code(s): E86.0 - DEHYDRATION Status: Acute (4) HTN (hypertension) Code(s): I10 - ESSENTIAL (PRIMARY) HYPERTENSION Status: Chronic (5) HLD (hyperlipidemia) Code(s): E78.5 - HYPERLIPIDEMIA, UNSPECIFIED Status: Chronic (6) MARYLOU (obstructive sleep apnea) Code(s): G47.33 - OBSTRUCTIVE SLEEP APNEA (ADULT) (PEDIATRIC) Status: Chronic <Mabel Davis - Last Filed: 01/30/18 16:44> Attending Addendum - Attending Addendum Date/Time: 01/30/18 6717 I personally evaluated the patient and discussed the management with Dr. Cabrera and Dr. Pantoja I agree with the History, Examination, Assessment and Plan documented above with any addition or exceptions noted below. Ok for d/c to home today. AryanMD <Mabel Davis - Last Filed: 01/30/18 16:44>
[2018-01-30 12:16] VITALS: BP 151/87; TEMP 98.1
--- NOTE | 2018-01-30 12:56 | DIS-2 ---
DATE OF ADMISSION: 01/27/2018 DATE OF DISCHARGE: 01/30/2018 RESIDENT: Garland Pantoja D.O. ADMITTING ATTENDING: Mabel Davis M.D. DISCHARGE ATTENDING: Mabel Davis M.D. CONSULTATIONS: Critical Care, Dr. Mayco Palencia. PROCEDURES: Chest x-ray on 01/26/2018 with normal findings. Abdominal ultrasound on 01/26/2018 with a probable single gallstone and small volume gallbladder sludge. No evidence for acute cholecystiti s or biliary dilatation. Abdomen and pelvis CT on 01/26/2018 with finding of fluid within the colon and scattered nondilated l oops of bowel, wall thickening of the descending colon and sigmoid colon consistent with enteritis or colitis. No evidence for bowel obstruction, intraperitoneal air or abscess. DISCHARGE MEDICATIONS: Aspirin 81 mg p.o. daily, Paxil 40 mg p.o. daily, hydralazine 25 mg p.o. p.r. n. for hypertension greater than 160 systolic, Losartan 100 mg p.o. daily, terazosin 2 mg p.o. at bed time, hydrochlorothiazide 25 mg p.o. b.i.d., Crestor 40 mg p.o. at bedtime, spironolactone 25 mg p.o. b.i.d., carvedilol 25 mg p.o. b.i.d., Nexium 20 mg p.o. daily, ampicillin 500 mg p.o. q.6 hours x10 days and Florastor 250 mg p.o. daily. DISCONTINUED MEDICATIONS: None. HOSPITAL COURSE: A 67-year-old male with a past medical history significant for hypertension, obstru ctive sleep apnea, hyperlipidemia, and depression. He was admitted for a Shigella colitis or sepsis secondary to a Shigella and/or colitis. On the day of admission, the patient received approximately 5 liters of the intravenous fluids; however, continued to be hypotensive to the point where on the mo rning of 01/27/2018 a Code Green was called due to severe hypotension with altered mental status. Th e patient was bolused additional fluids and moved to the IMCU where his blood pressure was able to be maintained with aggressive fluid resuscitation, at no point did the patient need medical pressor sup port. The patient remained in the IMCU over the next 24 hours. The patient experienced significant watery diarrhea throughout the hospitalization; however, it significantly improved over the final 36 hours of hospitalization. The stool studies resulted in positive for Shigella sensitive to ampicilli n. The patient's antibiotics were switched to be consistent with the culture sensitivities. Additio carla, the patient was started on Florastor due to the infectious diarrhea and antibiotics. For the majority of hospitalization, the patient's blood pressure medications were held due to the hy potension; however, over the final 36-hours of hospitalization the patient's blood pressure began to become hypertensive. On the evening of his last hospitalization p.m. was restarted and then the day of discharge, all of his meds were started. The patient was discharged in good condition with recomm endation to follow up within 1 week with his PCP, Dr. Garland Pantoja. DISPOSITION: Stable. INSTRUCTIONS: 1. Location: Home. 2. Diet: As tolerated. Avoid spicy or fatty foods for the next week. 3. ACTIVITY: Ad lulu. 4. Followup: Follow up with Dr. Garland Pantoja in 1 week.
== END 2018-01-30 15:48 | disposition home or self-care (01) | DRG 871 ==
LOC: ERS 19:06 → 2NO 01-27 00:15 → CCU 01-27 07:22 → IMCU/EMU 01-27 12:01 → T4-B 01-28 16:37
PROVIDERS: ADMIT Family Medicine; ATTEND Family Medicine
DX: A41.9 Sepsis, unspecified organism (principal); R57.1 Hypovolemic shock; N17.9 Acute kidney failure, unspecified; A09 Infectious gastroenteritis and colitis, unspecified; A03.9 Shigellosis, unspecified; E66.9 Obesity, unspecified; G47.33 Obstructive sleep apnea (adult) (pediatric); I10 Essential (primary) hypertension; E78.5 Hyperlipidemia, unspecified; E86.0 Dehydration; E83.42 Hypomagnesemia; E83.39 Other disorders of phosphorus metabolism; F32.9 Major depressive disorder, single episode, unspecified; Z68.36 Body mass index [BMI] 36.0-36.9, adult; Z99.81 Dependence on supplemental oxygen
CPT/HCPCS: 36415; 36416; 51701; 71045; 74177; 76705; 80048; 80053; 81003; 81015; 82274; 82550; 82553; 83605; 83630; 83690; 83735; 83880; 84100; 84484; 85025; 87040; 87045; 87046; 87077; 87086; 87186; 87324; 87328; 87329; 87449; 87899; 93005; 96361; 96365; 96366; 96367; A4216; J0744; J1956; J2405; J2543; J2765; J3370; J3475; J3480; J7050; J7120; Q0162; S0028